=== PATIENT | female | born 1975 | race Caucasian/White ===

== ENCOUNTER 2020-04-14 07:18 | Day surgery (SDC) | payer BC, OTHER ==
--- NOTE | 2020-04-11 10:45 | EKG ---
Test Date: 2020-04-10 Test Time: 16:04:59 Body Shop Supervisor: ELYSSA MEASUREMENT RESULTS: Intervals: Rate: 57 SD: 132 QRSD: 82 QT: 408 QTc: 397 [place]: P: 62 SD: 132 QRS: 84 T: 64 INTERPRETIVE STATEMENTS: Sinus bradycardia Otherwise normal ECG No previous ECG available for comparison Electronically Signed On 04-11-20 10:44:23 CDT by Tk Stein
[2020-04-14] MEDS ORDERED: Ringers Lactate 1,000 ML IV ONE ×2 (07:51→13:11)
[2020-04-14] MEDS ORDERED: FENTANYL CITR 250 MCG/5 ML ONE (10:24)
[2020-04-14] MEDS ORDERED: propofoL 200 MG/20 ML VIAL IV ONE (10:24)
[2020-04-14] MEDS ORDERED: LIDOCAINE 2% MPF 5 ML VIAL ONE ×2 (10:24→10:25)
[2020-04-14] MEDS ORDERED: dexAMETHasone 10 MG/ML VIAL ONE (10:24)
[2020-04-14] MEDS ORDERED: ONDANSETRON 4 MG/2 ML VIAL ONE (10:24)
[2020-04-14] MEDS ORDERED: ROCURONIUM 50 MG/5 ML VIAL IV ONE (10:24)
[2020-04-14] MEDS ORDERED: MIDAZOLAM HCL 2 MG/2 ML INJ ONE (10:24)
[2020-04-14] MEDS ORDERED: NA CHLORIDE 0.9% 500 ML ONE (10:54)
[2020-04-14] MEDS ORDERED: OXYMETAZOLINE HCL 0.05% 15ML NAS ONE (10:54)
[2020-04-14] MEDS ORDERED: EPINEPHRINE/PF 1 MG/ML AMP ONE (10:54)
[2020-04-14] MEDS: LIDOCAINE 1% W/EPI 1:100,000 MDV 20 ML VIAL ONE ×2 (10:58→11:31)
[2020-04-14] MEDS ORDERED: GLYCOPYRROLATE 0.2 MG/ML SYR ONE (12:30)
--- NOTE | 2020-04-14 12:48 | P.BOP ---
Preoperative diagnosis: recurrent sinusitis, nasal obstruction Postoperative diagnosis: same Primary procedure: B max BSP, B ITR, L alexa resection, B frontal BSP Charge Preparation Technician: NONE,NONE Estimated blood loss: 20ml Specimen: sinus trimmings Findings: thick eosinophilic mucus in L frontal Anesthesia: General Complications: None Implants: xerogel Fluids & blood products: crystalloid 900ml Transferred to: Recovery Room Condition: Good
[2020-04-14] MEDS ORDERED: KETOROLAC 30 MG/ML INJ ONE (12:51)
[2020-04-14] MEDS: MEPERIDINE HCL 25 MG/ML SYR ONE ×2 (13:07→13:32)
[2020-04-14] MEDS ORDERED: PROMETHAZINE INJ 25 MG/ML AMP ONE (13:19)
[2020-04-14] MEDS ORDERED: HYDROMORPHONE HCL 1 MG/ML INJ ONE (13:19)
[2020-04-14] MEDS ORDERED: MEPERIDINE HCL 25 MG/ML SYR ONE (13:45)
[2020-04-14 14:28] VITALS: BP 104/55; TEMP 97.9; O2SAT 97
--- NOTE | 2020-04-15 15:02 | OP ---
Date of Procedure: 04/14/2020 Surgeon: Josefina Ann MD Supervisor Bleach Plant: None. Preoperative Diagnoses: Nasal obstruction, recurrent, acute sinusitis, turbinate hypertrophy, alexa bullosa, septal deviation. Postoperative Diagnoses: Nasal obstruction, recurrent, acute sinusitis, turbinate hypertrophy, alexa bullosa, septal deviation with chronic left frontal sinusitis. Procedure: Nasal endoscopy with balloon dilation of bilateral frontal and maxillary sinuses, limited left ethmoidectomy, left alexa bullosa resection and inferior turbinate reduction Indication For Procedure: Jackie Jerome presented with a history of recurrent acute sinusitis and nasal obstruction. She was treated with maximal medical therapy and underwent post treatment CT scan, which demonstrated left alexa bullosa, inferior turbinate hypertrophy with very narrow ostiomeatal complex. The risks, benefits, and alternatives to the procedure were discussed with the patient who agreed to proceed. Description Of Procedure: The patient was brought to the operating room. She was placed under general anesthesia via oral endotracheal tube. The head of bed was turned 90 degrees. The nasal hairs were trimmed and the nasal cavity was packed with Afrin-soaked pledgets. After time for effect, the pledgets were removed and a 0-degree endoscope was used to perform a nasal endoscopy. On the left side, the septum was noted to have some high deviation, narrowing access to the middle meatus. The left middle meatus showed inflammation of the mucosa with thick mucoid drainage noted superiorly. Based on this intra-operative finding, decision was made to include balloon dilation of the frontal sinus during this procedure. The left alexa bullosa was dissected by incising the middle turbinate with a sickle knife and using the endoscopic scissors to cut along the superior and inferior aspects of the alexa. A straight Blakesley was used to remove the lateral aspect of the alexa bullosa, leaving the middle turbinate proper in place. The microdebrider fitted with inferior turbinate blade was used to refine the mucosal cut edges of the middle turbinate. This significantly increased access to the middle meatus prior to the application of the left frontal balloon and partial ethmoidectomy. The right inferior turbinate decongested nicely revealing normal anatomy of the middle turbinates with mild narrowing of the middle meatus. A Spencer was used to medialize the middle turbinate and the middle meatus was packed with Afrin- soaked pledgets. The Entellus sinus balloon device was prepared in accordance to etl manager's instructions. Under 0 degree endoscopic guidance, the tip of the instrument was placed just posterior and superior to the uncinate process and was used to cannulate and dilate the right frontal recess. Confirmation of placement by a fiberoptic cable demonstrated direct and pinpoint illumination. After dilation, the middle meatus was packed with Afrin-soaked pledgets and attention was turned to the left side. The balloon device was advanced toward the frontal recess and used to dilate. After dilation, a moderate amount of thick mucoid clear mucus was suctioned from the frontal recess. Photo- documentation of this mucoid drainage was taken. Additional dilation attempts were made to ensure adequate patency of the frontal recess. During the dilation process, the ethmoid bulla mucosa became irritated and very limited ethmoidectomy by removal of the bulla was performed in order to avoid scarring within this area. The Entellus device was then reconfigured for dilation of the maxillary sinuses. The right and left maxillary sinuses were easily cannulated and dilated without difficulty or complication. After dilation of the maxillary sinuses, the area was examined using a 70 degree endoscope. The right side remained difficult to visualize. The left side was noted to have some inflamed and swollen mucosa within the dilated infundibulum, which was removed using a straight and 90- degree Blakesley. Photo documentation of the left maxillary antrum was collected. Careful decision making was applied in regard to the nasal septum. Although the nasal septum was mildly deviated to the left, the presence of the alexa bullosa on that side was likely contributing to sense of nasal obstruction and decision was made to forego septoplasty at this time. Attention was then turned to the inferior turbinates. The head of the middle turbinate was injected with 1% lidocaine with epinephrine. A small stab incision was made with a 15-blade scalpel and a Jeffrey elevator was used to develop a submucosal pocket. The inferior turbinate blade on microdebrider was used to remove tissue submucosally along the medial aspect of the middle turbinate. Mucosal reduction along the inferior most aspect was also performed. After adequate soft tissue reduction, the Mcmahon elevator was used to down fracture, the inferior turbinates in order to optimize the nasal airway. The nasal cavities were examined and appeared to have overall significant improvement in patency. The nasal cavities were packed with portion of XeroGel, which was then soaked with saline as a hemostatic and dissolvable nasal dressing. The nasopharynx was thoroughly suctioned. The orogastric tube was used to remove all stomach contents and to suction a small amount of blood from the oropharynx. The patient was then returned to care of anesthesia for awakening and extubation in the operating room, which proceeded without difficulty. Complications: None. Specimen: Sinonasal trimmings. Disposition: The patient will resume standard post sinus surgery care and follow up with Dr. Ann in 10 days for evaluation of healing. NAHEED/BENITEZ Voice ID: [id number] Report ID: [id number] BRIONNA
--- OUTSIDE RECORDS SUMMARY | 2020-04-19 18:28 | XMS REPORT | Continuity of Care Document ---
:1975 Author Organization [facility] t Address [address] [place] [address] Care Team Providers Name Role Phone Pepe Salas MD Attending Clinician Km Cerda Attending Clinician Pepe Salas MD Admitting Clinician Problems Condition Condition Condition Status Onset Resolution Last Treating Co mments Source Name Details Category Date Date Treatment Clinician Date 729.5 PAIN Diagnosis Active 2015-04-10 Memoria IN LIMB, 04-10 12:12:00 l 719.41 729.5 10:27: [place] PAIN IN PAIN IN 00 JOINT LIMB, 719.41 PAIN IN JOINT Active 04/10/2015 [facility] COUGH, Diagnosis Active 2013-072014-04-29 Mem oria SHORTNESS 0-17 13:17:00 l OF BREATH COUGH, 12:45: Traci nn SHORTNESS 00 OF BREATH Active 04/29/2014 [facility] Final: Problem 2015-04-13 Memor ia Pain in 05:33:41 l Limb Final: [place] Pain in Limb 5 [facility] Final: Problem 2015-04-13 Memor ia Pain in 05:33:41 l Joint Final: [place] Involving Pain in Shoulder Joint Region Involving Shoulder Region 04/13/2015 [facility] Final: Problem 2015-04-13 Memor ia Pain in 05:33:41 l Joint Final: [place] Involving Pain in Pelvic Joint Region and Involving Thigh Pelvic Region and Thigh 04/13/2015 [facility] COUGH Diagnosis Active 2014-04-29 Mem oria 13:17:00 l COUGH [place] Active [facility] RESPIRATOR Diagnosis Active 2014-04-29 Memoria Y ABNORM 13:17:00 l NEC [place] RESPIRATOR Y ABNORM NEC Active [facility] PAIN IN Diagnosis Active 2015-04-10 Me moria LIMB 12:12:00 l PAIN IN [place] LIMB Active [facility] JOINT Diagnosis Active 2015-04-10 Mem oria PAIN-SHLDE 12:12:00 l R JOINT [place] PAIN-SHLDE R Active [facility] Allergies, Adverse Reactions, Alerts This patient has no known allergies or adverse reactions. Social History Social Habit Start Date Stop Date Quantity Comments Source Social History 2015-04-11 [facility]59[facility] 04:59:00 Medications This patient has no known medications. Procedures This patient has no known procedures. Encounters Start End Encounter Admission Attending Care Care Encounter Source Date/Time Date/Time Type Type Clinicians Facility Department ID 2019-12-22 2019-12-22 [facility] [id number] 06:14:00 10:50:00 Encounter Win Ortez [id number] [place] [id number] Surgical [id number] Center [id number] 2015-04-10 2015-04-10 Outpatient Channing Cerda [facility] [id number] 10:32:00 23:59:00 [address] 2014-04-29 2014-04-29 Outpatient Channing Cerda [id number] 12:45:00 23:59:00 [address] Results This patient has no known results.
--- OUTSIDE RECORDS SUMMARY | 2020-04-19 18:28 | XMS REPORT | Continuity of Care Document ---
:1975 Author Organization [facility] Care Team Providers Name Role Phone [facility] Unavailable Un available Problems Problem Status Onset Classification Date Comments Sourc e Date Reported 729.5 PAIN IN Active [facility] LIMB, 719.41 5 [place] PAIN IN JOINT COUGH, Active [facility] SHORTNESS OF 4 [place] BREATH Final: Pain in 04/13/2015 [facility] Limb [place] Final: Pain in 04/13/2015 [facility] Joint Involving [place] Shoulder Region Final: Pain in 04/13/2015 G reater Joint Involving [place] Pelvic Region and Thigh COUGH Active [facility] RESPIRATORY Active [facility] ABNORM NEC [facility] JOINT Active [facility] PAIN-SHLDER [facility] Medications No Data Provided for This Section Allergies, Adverse Reactions, Alerts No Known Medication Allergies Immunizations No Data Provided for This Section Results No Data Provided for This Section Pathology Reports No Data Provided for This Section Diagnostic Reports Report Value Date Source Hip 2 views DX EXAM: RIGHT HIP 2 VIEWS 04/10/2015 [facility] DATE: Apr 10, 2015 10:58:00 AM INDICATION: 729.5 Pain in Joint. COMPARISON: None available TECHNIQUE: AP and frog-leg lateral radiographs of the right hip FINDINGS: No fracture, disl ocation or other acute bony abnormality is identified. Joint spaces is preserved. Surgical omer are seen in the pelvis. IMPRESSION: 1.No acute fracture or malalignment SL: 12 Shoulder series DX EXAM: RIGHT SHOULDER 3 VIEWS 04/10/2015 [facility] DATE: Apr 10, 2015 10:58:00 AM INDICATION: 719.41 Shoulder pain. COMPARISON: None available TECHNIQUE: AP views in inte rnal and external rotation and scapular Y view of the right shoulder FINDINGS: No fracture, disl ocation or other acute bony abnormality is identified. No significant degenerative changes are seen. IMPRESSION: 1.No acute fracture or malalignment SL: 12 Consultation Notes No Data Provided for This Section Discharge Summaries No Data Provided for This Section History and Physicals No Data Provided for This Section Vital Signs No Data Provided for This Section Encounters Location Location Encounter Encounter Reason Attending ADM DC Stat us Source Details Type Number For Provider Date Date [facility] [id number] Van Cerda 04/29 04/30 [facility] [id number] Van Cerda 04/10 04/11 [facility] Procedures No Data Provided for This Section Assessment and Plan No Data Provided for This Section Plan of Care No Data Provided for This Section Social History Social History Date Source No data available for this 04/11/2015 [facility] section Family History No Data Provided for This Section Advance Directives No Data Provided for This Section Functional Status No Data Provided for This Section
== END 2020-04-14 14:28 | disposition home or self-care (01) ==
LOC: OR 07:18
PROVIDERS: ATTEND Otolaryngology
PROC: 09QQ4ZZ Repair Right Maxillary Sinus, Percutaneous Endoscopic Approach (ICD-10-PCS; 2020-04-14)
PROC: 09QR4ZZ Repair Left Maxillary Sinus, Percutaneous Endoscopic Approach (ICD-10-PCS; 2020-04-14)
PROC: 09QS4ZZ Repair Right Frontal Sinus, Percutaneous Endoscopic Approach (ICD-10-PCS; 2020-04-14)
PROC: 09BL8ZZ Excision of Nasal Turbinate, Via Natural or Artificial Opening Endoscopic (ICD-10-PCS; 2020-04-14)
PROC: 09BV8ZZ Excision of Left Ethmoid Sinus, Via Natural or Artificial Opening Endoscopic (ICD-10-PCS; 2020-04-14)
PROC: 09QT4ZZ Repair Left Frontal Sinus, Percutaneous Endoscopic Approach (ICD-10-PCS; principal; 2020-04-14 09:15)
DX: J34.2 Deviated nasal septum (principal); J01.91 Acute recurrent sinusitis, unspecified; J34.3 Hypertrophy of nasal turbinates; J32.1 Chronic frontal sinusitis; K21.9 Gastro-esophageal reflux disease without esophagitis; Z20.828 Contact with and (suspected) exposure to other viral communicable diseases; Z87.891 Personal history of nicotine dependence
CPT/HCPCS: 93005; 88304; 88311; 31254; 31296; 30140; 31295; U0002; J2704; J2550; J2250; J3010; J1100; J2175 ×2; J1170; J7120 ×2; J7040; J2405; 88305; J0171

== ENCOUNTER 2022-11-26 09:38 | Day surgery (SDC) | payer BC, OTHER ==
[2022-11-21 11:00] LABS: Absolute Lymphocytes (CBC) 2.3 K/uL (0.7-4.9); Hematocrit 37.7 % (36.0-45.0); Lymphocytes % 39.9 % (15.3-44.8); MCV 87.2 fL (80-100); MPV 8.5 fL (7.6-11.3); RBC Red Blood Cell Count 4.32 M/uL (3.86-4.86)
[2022-11-21 11:14] LABS: Potassium 3.9 mEq/L (3.5-5.1)
--- NOTE | 2022-11-22 05:36 | EKG ---
Test Date: 2022-11-21 Test Time: 10:38:18 Application Assistant: TANISHA MEASUREMENT RESULTS: Intervals: Rate: 49 GA: 146 QRSD: 84 QT: 420 QTc: 379 [place]: P: 47 GA: 146 QRS: 66 T: 46 INTERPRETIVE STATEMENTS: Marked sinus bradycardia Abnormal ECG Compared to ECG 04/10/2020 16:04:59 No significant changes Electronically Signed On 11-22-22 05:33:12 CDT by Tk Stein
[2022-11-26] MEDS ORDERED: CEFAZOLIN SODIUM 1 GM/VIAL ONE (10:06)
[2022-11-26] MEDS ORDERED: Ringers Lactate 1,000 ML IV ONE ×2 (10:06→15:03)
[2022-11-26] MEDS ORDERED: dexAMETHasone 10 MG/ML VIAL ONE ×2 (10:53→12:03)
[2022-11-26] MEDS ORDERED: EPINEPHRINE/PF 1 MG/ML AMP ONE (10:53)
[2022-11-26] MEDS ORDERED: FENTANYL CITR 100 MCG/2 ML ONE (10:53)
[2022-11-26] MEDS ORDERED: MIDAZOLAM HCL 2 MG/2 ML INJ ONE (10:53)
[2022-11-26] MEDS ORDERED: LIDOCAINE 1% MPF 5 ML VIAL ONE (10:53)
[2022-11-26] MEDS ORDERED: propofoL 200 MG/20 ML VIAL IV ONE (12:03)
[2022-11-26] MEDS ORDERED: KETOROLAC 30 MG/ML INJ ONE (12:04)
[2022-11-26] MEDS ORDERED: LIDOCAINE 2% MPF 5 ML VIAL ONE (12:04)
[2022-11-26] MEDS ORDERED: ROCURONIUM 50 MG/5 ML VIAL IV ONE ×2 (12:04→13:43)
[2022-11-26] MEDS ORDERED: ONDANSETRON 4 MG/2 ML VIAL ONE (12:04)
[2022-11-26] MEDS ORDERED: NS 0.9% VIAL 20 ML ONE (12:40)
[2022-11-26 15:51] VITALS: BP 100/72; TEMP 97.5; O2SAT 97
--- NOTE | 2022-11-26 18:51 | OP ---
Date of Procedure: 11/26/2022 Surgeon: Win Salas MD Preoperative Diagnoses: Right shoulder pain, possible recurrent rotator cuff tear by MRI with failur e to improve with conservative measures. Postoperative Diagnoses: 1.Fraying of the undersurface of the rotator cuff as well as the biceps anchor. 2.Partial thickness rotator cuff tear. 3.Acromioclavicular arthritis. Procedures Performed: 1.Arthroscopic debridement of the biceps anchor and undersurface tearing of the rotator cuff. 2.Mini open distal clavicle resection and rotator cuff repair. Estimated Blood Loss: 20 cc. Complications: There were no complications. Indications For Operation: Ms. Jerome is a 47-year-old, who had a fairly uneventful rotator cuff repa ir with good result, but unfortunately started having increasing pain related to her right shoulder. This responded to injections as well as therapy; however, she has had injections and therapy and her pain if anything may be increasing at this point. She does have an MRI, which demonstrates a probab le small rotator cuff tear and risks, benefits, and alternatives of different methods of treating thi s have been discussed with her. She has essentially exhausted conservative measures. We discussed t he possibility of biceps tenotomy, distal clavicle excision, inspection of the rotator cuff, arthrosc opic debridement, and other procedures which may be indicated. She says she understands everything a s presented and wishes to proceed. Description Of Procedure: The patient was taken to the operating room, placed in supine position. G eneral anesthesia obtained by staff. Following this, she was then placed in a beach chair position. Her arm was taken through a range of motion. She does not have any sign of arthrofibrosis or frozen shoulder and her right upper extremity was then prepped and draped in the usual sterile fashion for arthroscopy. Following this, a camera was then placed atraumatically with 1 pass into the shoulder, which allows for visualization of the shoulder joint. There was found to be some fraying of the maria guadalupe ps anchor anteriorly, does not appear to be a chico labral tear. Also, there was some fraying near t he footprint of the rotator cuff, but no overt tear is easily identified. After this, an anterior po rtal was then established and a shaver was used to debride the biceps anchor as well as the undersurf mena of the rotator cuff. After this, the arthroscopic instruments were removed. The posterior incis ion is stapled and the arm was then re-prepped and all gloves and instruments were changed. After th is, the previous incision was then utilized, taken down carefully through skin and soft tissues. Met iculous hemostasis being maintained using Bovie electrocautery. This leads down to the acromion. Th e deltoid itself did have some scarring, was quite thick; however, definitely it was a good solid rep air from previous surgery and this was removed gently from the anterior acromion. After this was don e, a was placed to allow for visualization and the undersurface of the acromion appeared t o be flat and flush. The acromioclavicular ligament is difficult to identify, but the distal clavicl e does appear to be slightly elevated. After this, the shoulder was inspected. It was found to have an extremely thickened bursa, which could not be removed using a rongeur, basically had to partially excise this using scissors, but did give good visualization of the underlying rotator cuff. The und erlying rotator cuff was inspected, although it was slightly . The previous suture anchor appeared to be well incorporated and there was no obvious rotator cuff tear; however, given the posit ion, we went ahead and placed another suture anchor near the previous and tied it down to perhaps at both this area up. The wound was then copiously irrigated and attention was turned to the clavicle. The distal clavicle was then excised and with no longer contacts the acromion. Care was taken to retain the inferior ligaments. The wound was copiously irrigated and the deltoid was repair ed back to the acromion via bone tunnels as well as over-sewing in the region of the clavicle and acr omion with Vicryl. It was again irrigated and the skin was closed. She is placed in Aquacel dressing and a shoulder immobilizer and taken to recovery. There w ere no complications. /MODL Voice ID: [id number] Report ID: [id number]
== END 2022-11-26 15:38 | disposition home or self-care (01) ==
LOC: OR 09:38
PROVIDERS: ATTEND Orthopaedic Surgery
PROC: 0LQ10ZZ Repair Right Shoulder Tendon, Open Approach (ICD-10-PCS; 2022-11-26)
PROC: 0PT90ZZ Resection of Right Clavicle, Open Approach (ICD-10-PCS; 2022-11-26)
PROC: 0RBJ4ZZ Excision of Right Shoulder Joint, Percutaneous Endoscopic Approach (ICD-10-PCS; principal; 2022-11-26 12:30)
DX: M75.121 Complete rotator cuff tear or rupture of right shoulder, not specified as traumatic (principal); M13.811 Other specified arthritis, right shoulder
CPT/HCPCS: 93005; 85025; 80048; 36415; 29822; 23412; 23120; A4216; J2704; J0171; J2001 ×2; J2250; J3010; J1100 ×2; J2405; J7120 ×2; J0690; 88304; 88311